=== PATIENT | female | born 1950 | race Caucasian/White ===

== ENCOUNTER 2016-09-03 10:36 | Emergency (ER) | payer MEDICARE, BC ==
--- NOTE | 2016-09-03 11:01 | Emergency Department Record ---
History of Present Illness - General Chief complaint: Rash Stated complaint: rash Time Seen by Provider: 09/03/16 11:00 Source: Patient, RN notes reviewed Mode of Arrival: Ambulatory - History of Present Illness Initial comments: rash for 3 weeks and it is itchy and she is wondering if reacting cannibol oil and she tried a course of medrol dose pack and it seemed to help but when she stopped it 3 days ago it started to get worse. fine red rash generalized and no sore throat and no fever and no NVD and not sick. MD complaint: Rash (f) Onset/Timin -: Week(s) Severity: Mild, Moderate Severity scale (1-10): 6 Quality: Aching, Burning Consistency: Intermittent - Related Data Home Medications Medication Instructions Recorded Confirmed Last Taken Levothyroxine Sodium [Synthroid] 112 mcg PO DAILYTHY 06/16/14 09/03/16 1 Day Ago ~09/02/16 Lorazepam [Ativan] 1 mg PO QHS 06/16/14 09/03/16 1 Day Ago ~09/02/16 Cholecalciferol (Vitamin D3) 2,000 unit PO DAILY 05/03/15 09/03/16 1 Day Ago [Vitamin D3] ~09/02/16 Cyclosporine [Restasis] 1 each OP BID 05/03/15 09/03/16 1 Day Ago ~09/02/16 Previous Rx's Medication Instructions Recorded Sucralfate [Carafate] 1 g PO QID #40 udc 05/03/15 Prednisone [Prednisone 10Mg] 10 mg PO ASDIR #30 tab 09/03/16 Allergies Allergy/AdvReac Type Severity Reaction Status Date / Time blue dye Allergy HYPERSENSIT Verified 09/03/16 10:50 IVITY butorphanol tartrate Allergy HIVES Verified 05/03/15 14:56 [From Stadol] D and C green no.6 Allergy HYPERSENSIT Verified 09/03/16 10:50 IVITY meperidine HCl [From Demerol] Allergy VOMITING Verified 05/03/15 14:56 nortriptyline HCl Allergy ANAPHYLAXIS Verified 05/03/15 14:56 [From Pamelor] Penicillins Allergy HIVES Verified 05/03/15 14:56 streptomycin Allergy ANAPHYLAXIS Verified 05/03/15 14:56 Travel Screening - Travel/Exposure Within Last 30 Days Have you traveled within the last 30 days?: No - Travel/Exposure Within Last Year Have you traveled outside the [place] in the last year?: No - Additonal Travel Details Have you been exposed to anyone with a communicable illness?: No - Travel Symptoms Symptom Screening: None Review of Systems Reviewed: No additional complaints except as noted below Constitutional: Reports: As per HPI. Denies: Chills, Fever, Malaise, Night sweats, Weakness, Weight change Eyes: Reports: As per HPI. Denies: Eye discharge, Eye pain, Photophobia, Vision change ENT: Reports: As per HPI. Denies: Congestion, Dental pain, Ear pain, Epistaxis , Hearing loss, Throat pain Respiratory: Reports: As per HPI. Denies: Cough, Dyspnea, Hemoptysis, Stridor, Wheezes Cardiovascular: Reports: As per HPI. Denies: Arrhythmia, Chest pain, Dyspnea on exertion, Edema, Murmurs, Orthopnea, Palpitations, Paroxysmal nocturnal dyspnea, Rheumatic Fever, Syncope Endocrine: Reports: As per HPI. Denies: Fatigue, Heat or cold intolerance, Polydipsia, Polyuria Gastrointestinal: Reports: As per HPI. Denies: Abdominal pain, Constipation, Diarrhea, Hematemesis, Hematochezia, Melena, Nausea, Vomiting Genitourinary: Reports: As per HPI. Denies: Abnormal menses, Discharge, Dyspareunia, Dysuria, Frequency, Hematuria, Incontinence, Retention, Urgency Musculoskeletal: Reports: As per HPI. Denies: Arthralgia, Back pain, Gout, Joint swelling, Myalgia, Neck pain Skin: Reports: As per HPI, Rash. Denies: Bruising, Change in color, Change in hair/nails, Lesions, Pruritus Neurological: Reports: As per HPI. Denies: Abnormal gait, Confusion, Headache, Numbness, Paresthesias, Seizure, Tingling, Tremors, Vertigo, Weakness Psychiatric: Reports: As per HPI. Denies: Anxiety, Auditory hallucinations, Depression, Homicidal thoughts, Suicidal thoughts, Visual hallucinations Hematological/Lymphatic: Reports: As per HPI. Denies: Anemia, Blood Clots, Easy bleeding, Easy bruising, Swollen glands Past Medical History - SOCIAL HISTORY Smoking Status: Former smoker Alcohol Use: None Drug Use: None - RESPIRATORY Hx Pneumonia: Yes Comment:: apical scarring - CARDIOVASCULAR Hx Palpitations: Yes - NEURO Hx Headaches: Yes - GI Hx Reflux: Yes (Barretts) Hx Ulcer: Yes - Hx Genitourinary Disorders: No - ENDOCRINE Hx Diabetes: No Hx Thyroid Disease: Yes (thyroidectomy) - MUSCULOSKELETAL Hx Arthritis: Yes Comment:: autoimmune - PSYCH Hx Anxiety: Yes - HEMATOLOGY/ONCOLOGY Hx Anemia: Yes Family Medical History Any Significant Family History?: Yes Hx Heart Disease: Father, Mother Hx Kidney Disease: Mother Hx Resp Disorders: Mother Physical Exam - General General Appearance: Alert, Oriented x3, Cooperative, No acute distress - Head Head exam: Normal inspection - Eye Eye exam: Normal appearance, PERRL Pupils: Normal accommodation - ENT ENT exam: Normal exam, Mucous membranes moist, Normal external ear exam, Normal orophraynx, TM's normal bilaterally Ear exam: Normal external inspection. negative: External canal tenderness Nasal Exam: Normal inspection. negative: Discharge, Sinus tenderness Mouth exam: Normal external inspection, Tongue normal Teeth exam: Normal inspection. negative: Dental caries Throat exam: Normal inspection. negative: Tonsillar erythema, Tonsillar exudate - Neck Neck exam: Normal inspection, Full ROM. negative: Tenderness - Respiratory Respiratory exam: Normal lung sounds bilaterally. negative: Respiratory distress - Cardiovascular Cardiovascular Exam: Regular rate, Normal rhythm, Normal heart sounds - GI/Abdominal GI/Abdominal exam: Soft, Normal bowel sounds. negative: Tenderness - Rectal Rectal exam: Deferred - exam: Deferred - Extremities Extremities exam: Normal inspection, Full ROM, Normal capillary refill. negative: Tenderness - Back Back exam: Reports: Normal inspection, Full ROM. Denies: Muscle spasm, Rash noted, Tenderness - Neurological Neurological exam: Alert, Normal gait, Oriented X3, Reflexes normal - Psychiatric Psychiatric exam: Normal affect, Normal mood - Skin Skin exam: Dry, Intact, Rash, Urticaria Course Vital Signs 09/03/16 10:42 Temperature 98.0 F Pulse Rate [ 89 Pulse Ox Probe] Respiratory 16 Rate Blood Pressure 143/84 [Left Arm] Pulse Ox 98 Disposition Clinical Impression: Dermatitis Disposition: Home, Self-Care Condition: (1) Good Instructions: Urticaria (ED) Additional Instructions: follow up with family and please give family list recheck in one week Prescriptions: Prednisone [Prednisone 10Mg] 10 mg PO ASDIR #30 tab Forms: Patient Portal Access Time of Disposition: 11:30
[2016-09-03] MEDS ORDERED: METHYLPREDNISOLONE 80MG/VIAL IM ONE (11:10)
== END 2016-09-03 11:41 | disposition home or self-care (01) ==
LOC: ER 10:36
DX: L30.9 Dermatitis, unspecified (principal)
CPT/HCPCS: 96372; 99283; J1040

== ENCOUNTER 2017-08-11 11:42 | Emergency (ER) | payer MEDICARE, BC ==
--- NOTE | 2017-08-11 12:01 | Emergency Department Record ---
History of Present Illness - General Chief Complaint: Ankle/Foot Injury Stated Complaint: L FOOT INJURY Time Seen by Provider: 08/11/17 11:56 Source: Patient Mode of Arrival: Ambulatory Limitations: No limitations - History of Present Illness Initial Comments: 67 yo female presents with left foot pain. She was stepping down 2 steps and mis stepped. She felt a "crack". She has mid foot bruising and pain today. No prior injury to the foot. Her back is stiff today as well. She has pain that radiates into the left hip. She did not fall on the hip. No weakness or numbness. No leg swelling. No radicular type pain down the left leg. MD Complaint: Foot injury -: Days(s) (1) Injury: Hip: Left, Foot: Left Type of Injury: Inversion Place: Home Severity: Moderate Improves With: Immobilization Worsens With: Movement, Palpation Context: Walking, Other Associated Symptoms: Able to partially bear weight - Related Data Previous Rx's Medication Instructions Recorded Oxycodone HCl/Acetaminophen 1 tab PO Q6H PRN #4 tablet 08/11/17 [Percocet 10mg/325mg] Allergies Allergy/AdvReac Type Severity Reaction Status Date / Time blue dye Allergy HYPERSENSIT Verified 09/03/16 10:50 IVITY butorphanol tartrate Allergy HIVES Verified 05/03/15 14:56 [From Stadol] meperidine HCl [From Demerol] Allergy VOMITING Verified 05/03/15 14:56 nortriptyline HCl Allergy ANAPHYLAXIS Verified 05/03/15 14:56 [From Pamelor] Penicillins Allergy HIVES Verified 05/03/15 14:56 streptomycin Allergy ANAPHYLAXIS Verified 05/03/15 14:56 F D AND C yellow #5 an 6 Allergy HYPERSENSIT Uncoded 08/11/17 12:03 IVITY Review of Systems Constitutional: Denies: Chills, Fever, Weakness Eyes: Denies: Eye discharge ENT: Denies: Congestion, Throat pain Respiratory: Denies: Cough Cardiovascular: Denies: Chest pain, Syncope Endocrine: Denies: Fatigue Gastrointestinal: Denies: Abdominal pain, Diarrhea, Nausea, Vomiting Genitourinary: Denies: Dysuria Musculoskeletal: Reports: As per HPI, Arthralgia Skin: Reports: Bruising. Denies: Change in color Neurological: Denies: Numbness, Tingling, Weakness Psychiatric: Denies: Anxiety Hematological/Lymphatic: Denies: Easy bleeding, Easy bruising Past Medical History - SOCIAL HISTORY Smoking Status: Former smoker Drug Use: None - RESPIRATORY Hx Pneumonia: Yes Comment:: apical scarring - CARDIOVASCULAR Hx Palpitations: Yes - NEURO Hx Headaches: Yes - GI Hx Reflux: Yes (Barretts) Hx Ulcer: Yes - Hx Genitourinary Disorders: No - ENDOCRINE Hx Diabetes: No Hx Thyroid Disease: Yes (thyroidectomy) - MUSCULOSKELETAL Hx Arthritis: Yes Comment:: autoimmune - PSYCH Hx Anxiety: Yes - HEMATOLOGY/ONCOLOGY Hx Anemia: Yes Family Medical History Hx Heart Disease: Father, Mother Hx Kidney Disease: Mother Hx Resp Disorders: Mother Physical Exam - General General Appearance: Alert, Oriented x3, Cooperative, No acute distress Limitations: No limitations - Head Head exam: Normal inspection - Eye Eye exam: Normal appearance - ENT ENT exam: Normal exam Ear exam: Normal external inspection Nasal Exam: Normal inspection Mouth exam: Normal external inspection - Neck Neck exam: Normal inspection - Cardiovascular Peripheral Pulses: 2+: Dorsalis Pedis (L) - Rectal Rectal exam: Deferred - exam: Deferred - Extremities Extremities exam: Full ROM, Joint swelling, Normal capillary refill, Tenderness. negative: Normal inspection Image of Full Body: 1 - tenderness to the lateral hip, and left glutteal area. Image of Feet: 1 - bruising, tenderness, intact skin, no deformity - Back Back exam: Reports: Muscle spasm. Denies: CVA tenderness (R), CVA tenderness (L ), Paraspinal tenderness, Vertebral tenderness (no vertebral tenderness on palpation of the spine) - Neurological Neurological exam: Alert, Oriented X3. negative: Altered, Motor sensory deficit - Psychiatric Psychiatric exam: Normal affect, Normal mood. negative: Agitated, Anxious - Skin Skin exam: Other (bruising top of the foot) Course - Reevaluation(s) Reevaluation #1: 08/11/17 12:43 XR of the hip and foot are negative DC with supportive Z[employer] given her foot pain. She has a bad shoulder and can only use one crutch. The boot will give support since she can not use 2 crutches. 08/11/17 13:26 The patient has follow up this week with her orthopedist on Sunday She has crutches already Disposition Disposition: Discharge Clinical Impression: Sprain of foot, left Qualifiers: Encounter type: initial encounter Qualified Code(s): S93.602A - Unspecified sprain of left foot, initial encounter Sprain of left hip Qualifiers: Encounter type: initial encounter Qualified Code(s): S73.102A - Unspecified sprain of left hip, initial encounter Disposition: Home, Self-Care Condition: (1) Good Instructions: Foot Sprain (ED) Additional Instructions: Follow up as scheduled this week with your orthopedist Rest Avoid weight bearing or walking Prescriptions: Oxycodone HCl/Acetaminophen [Percocet 10mg/325mg] 1 tab PO Q6H PRN #4 tablet PRN Reason: Pain - General Forms: Patient Portal Access Time of Disposition: 12:45 Quality - Quality Measures Quality Measures: N/A - Blood Pressure Screening Does Patient Have Any of the Following: Active Dx of HTN Blood Pressure Classification: Pre-Hypertensive BP Reading Systolic Measurement: 147 Diastolic Measurement: 84 Screening for High Blood Pressure: Patient Exclusion, Hx of HTN [[id number]]
--- NOTE | 2017-08-12 15:51 | RADIOLOGY REPORT ---
EXAM: FOOT, LEFT 3 VIEWS HISTORY: FOOT PAIN. TECHNIQUE: Three-view left foot. COMPARISON: None. ENCOUNTER: Initial. FINDINGS: Negative for fracture or dislocation. Soft tissues are unremarkable. IMPRESSION: NEGATIVE EXAM. JOB NUMBER: [id number] MTDD
--- NOTE | 2017-08-12 15:53 | RADIOLOGY REPORT ---
EXAM: HIP,UNILAT, 2-3 VIEW LEFT HISTORY: PAIN. TECHNIQUE: AP pelvis, two-view left hip. COMPARISON: None. ENCOUNTER: Initial. FINDINGS: Negative for fracture or dislocation. Osteopenia. Degenerative change of the hips bilaterally. Soft tissues are unremarkable. IMPRESSION: OSTEOPENIA. DEGENERATIVE CHANGE TO THE HIPS BILATERALLY. JOB NUMBER: [id number] MTDD
== END 2017-08-11 13:14 | disposition home or self-care (01) ==
LOC: ER 11:42
DX: S93.602A Unspecified sprain of left foot, initial encounter (principal); S73.102A Unspecified sprain of left hip, initial encounter; X50.0XXA Overexertion from strenuous movement or load, initial encounter; Y92.009 Unspecified place in unspecified non-institutional (private) residence as the place of occurrence of the external cause; I10 Essential (primary) hypertension; Z87.891 Personal history of nicotine dependence
CPT/HCPCS: 99283; 99284

== ENCOUNTER 2018-05-03 18:58 | Emergency (ER) | payer MEDICARE, BC ==
--- NOTE | 2018-05-03 19:47 | Emergency Department Record ---
History of Present Illness - General Chief Complaint: Hypertension Stated Complaint: HTN Time Seen by Provider: 05/03/18 19:34 Source: Patient Mode of Arrival: Wheelchair Limitations: No limitations - History of Present Illness Initial Comments: 68 yo female presents to ED for evaluation of elevated blood pressure intermittently for the past 1 month. Patient reports headache and "fuzzy in the head", denies chest discomfort, numbness, tingling, or focal weakness symptoms. Patient denies a history of HTN, and denies that she see's a PCP regularly. 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 Patient reports that her BP spikes when she takes her T3 since her dose was elevated 3 weeks ago. Complaint: Lightheadedness Onset/Timin -: Month(s) Timing: Unsure Description: Other History of Same: Yes History of Trauma: No Severity: Mild Improves With: Nothing Worsens With: Nothing Associated Symptoms: Denies other symptoms - [place] Coma Scale Eye Response: (4) Open spontaneously Motor Response: (6) Obeys commands Verbal Response: (5) Oriented [place] Total: 15 - Related Data Home Medications Medication Instructions Recorded Confirmed Last Taken Thyroid,Pork [Thyroid] 60 mg PO DAILY 05/03/18 05/03/18 Unknown Previous Rx's Medication Instructions Recorded Hydrochlorothiazide [Hctz] 25 mg PO DAILY #10 tablet 05/03/18 Allergies Allergy/AdvReac Type Severity Reaction Status Date / Time blue dye Allergy HYPERSENSIT Verified 05/03/18 19:05 IVITY butorphanol tartrate Allergy HIVES Verified 05/03/18 19:05 [From Stadol] chlorpromazine Allergy ANAPHYLAXIS Verified 05/03/18 19:05 [From Thorazine] meperidine HCl [From Demerol] Allergy VOMITING Verified 05/03/18 19:05 nortriptyline HCl Allergy ANAPHYLAXIS Verified 05/03/18 19:05 [From Pamelor] Penicillins Allergy HIVES Verified 05/03/18 19:05 streptomycin Allergy ANAPHYLAXIS Verified 05/03/18 19:05 F D AND C yellow #5 an 6 Allergy HYPERSENSIT Uncoded 05/03/18 19:05 IVITY Travel Screening - Travel/Exposure Within Last 30 Days Have you traveled within the last 30 days?: No Review of Systems Constitutional: Denies: Chills, Fever, Malaise, Night sweats Eyes: Denies: Eye discharge, Eye pain ENT: Denies: Congestion, Ear pain, Epistaxis Respiratory: Denies: Cough, Dyspnea Cardiovascular: Denies: Chest pain, Dyspnea on exertion Endocrine: Denies: Fatigue, Heat or cold intolerance Gastrointestinal: Denies: Abdominal pain, Nausea, Vomiting Genitourinary: Denies: Incontinence, Retention Musculoskeletal: Denies: Arthralgia, Back pain Skin: Denies: Bruising, Change in color Neurological: Reports: Headache. Denies: Abnormal gait, Confusion, Seizure Psychiatric: Denies: Anxiety Hematological/Lymphatic: Denies: Anemia, Blood Clots Past Medical History - SOCIAL HISTORY Smoking Status: Former smoker - RESPIRATORY Hx Respiratory Disorders: Yes Hx Pneumonia: Yes Comment:: apical scarring - CARDIOVASCULAR Hx Cardio Disorders: Yes Hx Palpitations: Yes - NEURO Hx Neuro Disorders: Yes Hx Headaches: Yes - GI Hx GI Disorders: Yes Hx Reflux: Yes (Barretts) Hx Ulcer: Yes - Hx Genitourinary Disorders: No - ENDOCRINE Hx Endocrine Disorders: Yes Hx Diabetes: No Hx Thyroid Disease: Yes (thyroidectomy) - MUSCULOSKELETAL Hx Arthritis: Yes Comment:: autoimmune - PSYCH Hx Psych Problems: Yes Hx Anxiety: Yes - HEMATOLOGY/ONCOLOGY Hx Hematology/Oncology Disorders: Yes Hx Anemia: Yes Family Medical History Any Significant Family History?: Yes Hx Heart Disease: Father, Mother Hx Kidney Disease: Mother Hx Resp Disorders: Mother Physical Exam - General General Appearance: Alert, Oriented x3, Cooperative, No acute distress, Other ( Patient is resting comfortably, doing a crossword on examination.) Limitations: No limitations - Head Head exam: Atraumatic, Normocephalic, Normal inspection Head exam detail: negative: Abrasion, Contusion, Concepcion's sign, General tenderness, Hematoma, Laceration - Eye Eye exam: Normal appearance. negative: Conjunctival injection, Periorbital swelling, Periorbital tenderness, Scleral icterus - ENT Ear exam: negative: Auricular hematoma, Auricular trauma Nasal Exam: negative: Active bleeding, Discharge, Dried blood, Foreign body Mouth exam: negative: Drooling, Laceration, Muffled voice, Tongue elevation - Neck Neck exam: Normal inspection. negative: Meningismus, Tenderness - Respiratory Respiratory exam: Normal lung sounds bilaterally. negative: Rales, Respiratory distress, Rhonchi, Stridor - Cardiovascular Cardiovascular Exam: Regular rate, Normal rhythm, Normal heart sounds - GI/Abdominal GI/Abdominal exam: Soft. negative: Rebound, Rigid, Tenderness - Rectal Rectal exam: Deferred - exam: Deferred - Extremities Extremities exam: Normal inspection. negative: Calf tenderness, Pedal edema, Tenderness - Back Back exam: Denies: CVA tenderness (R), CVA tenderness (L) - Neurological Neurological exam: Alert, Normal gait, Oriented X3 - Psychiatric Psychiatric exam: Normal affect, Normal mood - Skin Skin exam: Normal color. negative: Abrasion Type of lesion: negative: abrasion Course Vital Signs 05/03/18 19:00 Temperature 98.8 F Pulse Rate 91 H Respiratory 20 Rate Blood Pressure 201/114 Pulse Ox 97 - Reevaluation(s) Reevaluation #1: 05/03/18 20:40 Laboratory studies were reviewed and are grosslly unremarkable for an acute process. TSH 37.77, however patient does take thyroid medication. Repeat BP medication is 181/95, following discussion with Yulisa Mckeon, will initiate low-dose B-Satish for her BP symptoms. Reevaluation #2: 05/03/18 20:50 Discussed the plan of care with the patient, patient is declining B-Satish, wants to start a water pill "as my thyroid medication is making me retain water ". Will initiate treatment with HCTZ 25 mg daily for her symptoms. Medical Decision Making - Lab Data Result diagrams: 05/03/18 19:53 05/03/18 19:53 Disposition Disposition: Discharge Clinical Impression: Hypertension Qualifiers: Hypertension type: unspecified Qualified Code(s): I10 - Essential (primary) hypertension Hypothyroid Qualifiers: Hypothyroidism type: unspecified Qualified Code(s): E03.9 - Hypothyroidism, unspecified Disposition: Home, Self-Care Condition: (2) Stable Instructions: Hypertension (ED) Additional Instructions: Return to ED if your symptoms worsen or if you have any concerns. Hydrochlorthiazide as directed. Follow-up with Yulisa Mckeon ST[employer] FABRICATOR in 3-5 days as directed. Prescriptions: Hydrochlorothiazide [Hctz] 25 mg PO DAILY #10 tablet Forms: Patient Portal Access Time of Disposition: 20:54 Quality - Quality Measures Quality Measures: N/A - Blood Pressure Screening Does Patient Have Any of the Following: No Blood Pressure Classification: Hypertensive Reading Systolic Measurement: 201 Diastolic Measurement: 114 Screening for High Blood Pressure: < First Hypertensive BP, F/U Documented > [ G8950] First Hypertensive Follow-up Interventions: Referral to alternative/primary care provider.
[2018-05-03 20:00] LABS: BASO % 0.3 % (0-6); GRAN % 51.6 % (47-80); HEMATOCRIT 43.5 % (35.0-47.0); HEMOGLOBIN 14.5 gm/dl (11.6-16.0); LYMPH % 34.9 % (16-45); MEAN CELL VOLUME 93.5 fl (81-97); MEAN CORPUSCULAR HEMOGLOBIN 31.2 pg (27-33); MEAN CORPUSCULAR HGB CONC 33.3 g/dl (32-36); MEAN PLATELET VOLUME 9.5 fl (7.4-10.4); MONO % 10.2 % (0-9); PLATELET COUNT 266 K/uL (130-400); RED BLOOD COUNT 4.65 M/uL (3.80-5.40); RED CELL DISTRIBUTION WIDTH 13.7 % (11.5-14.5); WHITE BLOOD COUNT W/O DIFF 7.4 K/uL (4.2-12.2)
--- NOTE | 2018-05-03 20:05 | Emergency Department Record ---
History of Present Illness - General Chief Complaint: Hypertension Stated Complaint: HTN Time Seen by Provider: 05/03/18 19:34 Mode of Arrival: Wheelchair - History of Present Illness Onset/Timin -: Days(s) Timing: Unsure Description: Other History of Same: No History of Trauma: No Severity: Mild Improves With: Nothing Worsens With: Nothing Associated Symptoms: Denies other symptoms - Related Data Home Medications Medication Instructions Recorded Confirmed Last Taken Thyroid,Pork [Thyroid] 60 mg PO DAILY 05/03/18 05/03/18 Unknown Previous Rx's Medication Instructions Recorded Hydrochlorothiazide [Hctz] 25 mg PO DAILY #10 tablet 05/03/18 Allergies Allergy/AdvReac Type Severity Reaction Status Date / Time blue dye Allergy HYPERSENSIT Verified 05/03/18 19:05 IVITY butorphanol tartrate Allergy HIVES Verified 05/03/18 19:05 [From Stadol] chlorpromazine Allergy ANAPHYLAXIS Verified 05/03/18 19:05 [From Thorazine] meperidine HCl [From Demerol] Allergy VOMITING Verified 05/03/18 19:05 nortriptyline HCl Allergy ANAPHYLAXIS Verified 05/03/18 19:05 [From Pamelor] Penicillins Allergy HIVES Verified 05/03/18 19:05 streptomycin Allergy ANAPHYLAXIS Verified 05/03/18 19:05 F D AND C yellow #5 an 6 Allergy HYPERSENSIT Uncoded 05/03/18 19:05 IVITY Travel Screening - Travel/Exposure Within Last 30 Days Have you traveled within the last 30 days?: No Past Medical History - SOCIAL HISTORY Smoking Status: Former smoker - RESPIRATORY Hx Respiratory Disorders: Yes Hx Pneumonia: Yes Comment:: apical scarring - CARDIOVASCULAR Hx Cardio Disorders: Yes Hx Palpitations: Yes - NEURO Hx Neuro Disorders: Yes Hx Headaches: Yes - GI Hx GI Disorders: Yes Hx Reflux: Yes (Barretts) Hx Ulcer: Yes - Hx Genitourinary Disorders: No - ENDOCRINE Hx Endocrine Disorders: Yes Hx Diabetes: No Hx Thyroid Disease: Yes (thyroidectomy) - MUSCULOSKELETAL Hx Arthritis: Yes Comment:: autoimmune - PSYCH Hx Psych Problems: Yes Hx Anxiety: Yes - HEMATOLOGY/ONCOLOGY Hx Hematology/Oncology Disorders: Yes Hx Anemia: Yes Family Medical History Any Significant Family History?: Yes Hx Heart Disease: Father, Mother Hx Kidney Disease: Mother Hx Resp Disorders: Mother Course Vital Signs 05/03/18 19:00 Temperature 98.8 F Pulse Rate 91 H Respiratory 20 Rate Blood Pressure 201/114 Pulse Ox 97 Medical Decision Making - Lab Data Result diagrams: 05/03/18 19:53 05/03/18 19:53 Disposition Clinical Impression: Hypertension, Hypothyroid Disposition: Home, Self-Care Condition: (2) Stable Instructions: Hypertension (ED) Additional Instructions: Return to ED if your symptoms worsen or if you have any concerns. Hydrochlorthiazide as directed. Follow-up with Yulisa Mckeon NP in 3-5 days as directed. Prescriptions: Hydrochlorothiazide [Hctz] 25 mg PO DAILY #10 tablet Forms: Patient Portal Access Quality - Quality Measures Quality Measures: N/A - Blood Pressure Screening Does Patient Have Any of the Following: No Blood Pressure Classification: Hypertensive Reading Systolic Measurement: 178 Diastolic Measurement: 105 Screening for High Blood Pressure: < First Hypertensive BP, F/U Documented > [ G8950] First Hypertensive Follow-up Interventions: Referral to alternative/primary care provider.
[2018-05-03 20:10] LABS: BLOOD UREA NITROGEN 16 mg/dL (8-23); CREATININE 0.7 mg/dL (0.5-0.9); EST GLOMERULAR FILTRATION RATE > 60 mL/min
[2018-05-03 20:11] LABS: TOTAL PROTEIN 7.4 g/dL (6.6-8.7)
[2018-05-03 20:13] LABS: GLUCOSE,RANDOM 95 mg/dL (74-109)
[2018-05-03 20:15] LABS: ALB/GLOB RATIO 1.5 (1.1-1.8); ALBUMIN 4.4 g/dL (4.0-5.0); ALT/SGPT 31 U/L (<33); AST/SGOT 31 U/L (10.0-35.0)
[2018-05-03 20:16] LABS: ALKALINE PHOSPHATASE 111 U/L (35-104)
[2018-05-03 20:26] LABS: THYROID STIMULATING HORMONE 37.77 uIU/mL (0.270-4.20)
[2018-05-03] MEDS ORDERED: HYDROCHLOROTHIAZIDE 25 MG TABLET PO ONE (20:55)
== END 2018-05-03 21:05 | disposition home or self-care (01) ==
LOC: ER 18:58
DX: I10 Essential (primary) hypertension (principal); E03.9 Hypothyroidism, unspecified; R51 Headache; N28.9 Disorder of kidney and ureter, unspecified; Z87.891 Personal history of nicotine dependence
CPT/HCPCS: 80053; 84443; 85025; 99283; 99284